=== PATIENT | male | born 2005 | race African-American/Black ===

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

== ENCOUNTER 2024-09-24 17:38 | Inpatient (IN) | payer OTHER ==
[2024-09-24 18:06] VITALS: BMI 26.7
[2024-09-24] MEDS ORDERED: IBUPROFEN 400 MG TABLET (FP) PO PRN (18:20)
[2024-09-24] MEDS ORDERED: LOPERAMIDE HCL 2 MG CAPSULE PO PRN (18:20)
[2024-09-24] MEDS ORDERED: NALOXONE (NARCAN) HCL 4 MG/0.1 ML SPRAY NS PRN (18:20)
[2024-09-24] MEDS ORDERED: DICYCLOMINE HCL 10 MG CAPSULE PO PRN (18:20)
[2024-09-24] MEDS ORDERED: BENZONATATE 200 MG CAPSULE PO PRN (18:20)
[2024-09-24] MEDS ORDERED: MAGNESIUM HYDROX 2400MG/30ML ORAL SUSPENSION 30 ML CUP PO PRN (18:20)
[2024-09-24] MEDS ORDERED: MAG HYDROX/AL HYDROX/SIMETH 30 ML UNIT-DOSE CUP PO PRN (18:20)
[2024-09-24] MEDS ORDERED: NICOTINE POLACRILEX 2 MG GUM BUC PRN (18:20)
[2024-09-24] MEDS ORDERED: BENZOCAINE/MENTHOL (CHLORASEPTIC ) LOZENGE MM PRN (18:20)
[2024-09-24] MEDS ORDERED: POLYETHYLENE GLYCOL (HEALTHYLAX) 3350 17 GM PACKET PO PRN (18:20)
[2024-09-24] MEDS ORDERED: IBUPROFEN 600 MG TABLET (FP) PO PRN (18:20)
[2024-09-24] MEDS ORDERED: ACETAMINOPHEN 325 MG TABLET (FP) PO PRN (18:20)
[2024-09-24] MEDS ORDERED: NICOTINE POLACRILEX 2 MG LOZENGE BC PRN (18:20)
[2024-09-24] MEDS ORDERED: BISMUTH SUBSALICYLATE 524 MG/30 ML PO PRN (18:20)
[2024-09-24] MEDS ORDERED: ONDANSETRON *ODT* 4 MG TABLET SL PRN (18:20)
[2024-09-24] MEDS ORDERED: guaiFENesin 600 MG TABLET.ER (FP) PO PRN (18:20)
[2024-09-24] MEDS ORDERED: ALBUTEROL SO4 HFA INHALER IH PRN (21:08)
[2024-09-24] MEDS: THIAMINE 100 MG TABLET PO SCH (22:14)
[2024-09-24] MEDS: BUDESONIDE/FORMETEROL FUMARATE 80/4.5 mcg INHALER IH SCH (22:14)
[2024-09-24] MEDS: MELATONIN 5 MG TABLETS PO SCH (22:19)
[2024-09-25] MEDS: PRENATAL VITAMINS W/ FOLIC ACID TABLET (FP) PO SCH (09:39)
[2024-09-25] MEDS: FOLIC ACID 1 MG TABLET (FP) PO SCH (09:40)
[2024-09-25] MEDS: METHOCARBAMOL 500 MG TABLET PO PRN (21:43)
[2024-09-25] MEDS: hydrOXYzine PAMOATE 25 MG CAPSULE (FP) PO PRN (21:43)
[2024-09-26 08:53] VITALS: BP 141/74; PULSE 100; RESP 15; TEMP 97.3
== END 2024-09-26 10:04 | disposition home or self-care (01) | DRG 775 ==
LOC: YASAS 17:38 → Y6N 18:37
PROVIDERS: ADMIT Neuromusculoskeletal Medicine & OMM; ATTEND Allergy & Immunology
PROC: HZ2ZZZZ Detoxification Services for Substance Abuse Treatment (ICD-10-PCS; principal; 2024-09-24)
DX: F10.230 Alcohol dependence with withdrawal, uncomplicated (principal); F12.20 Cannabis dependence, uncomplicated; F17.290 Nicotine dependence, other tobacco product, uncomplicated; F10.282 Alcohol dependence with alcohol-induced sleep disorder; G47.00 Insomnia, unspecified; J45.909 Unspecified asthma, uncomplicated; Z86.79 Personal history of other diseases of the circulatory system
CPT/HCPCS: 80305; 80307; 93005; 93010

== ENCOUNTER 2024-10-18 20:25 | Observation (INO) | payer OTHER ==
[2024-10-18 20:35] VITALS: BMI 26.1
[2024-10-18] MEDS ORDERED: FAMOTIDINE 20 MG/50 ML IVPB 20 MG/50 ML MG IVPB ONE (22:26)
[2024-10-18] MEDS ORDERED: THIAMINE HCL 200 MG/2 ML VIAL ONE (22:26)
[2024-10-18] MEDS ORDERED: ONDANSETRON 4 MG/2 ML VIAL ONE (22:26)
[2024-10-18 23:00] LABS: BG HCT 49.0 % (35.4-49); VENOUS BASE EXCESS -10.1 mmol/L (-2-2); VENOUS O2 SATURATION 84.8 % (70-80); VENOUS PCO2 33.9 mmHg (38-52); VENOUS PH 7.277 (7.310-7.410)
[2024-10-18] MEDS: THIAMINE HCL 200 MG/2 ML VIAL IVPB ONE (23:01)
[2024-10-18] MEDS: FAMOTIDINE 20 MG/50 ML IVPB 20 MG/50 ML MG IVPB ONE (23:01)
[2024-10-18] MEDS: LACTATED RINGERS SOLUTION 1000 ML INFUS.BAG IV ONE (23:01)
[2024-10-18] MEDS: ONDANSETRON 4 MG/2 ML VIAL IVPUSH ONE (23:01)
[2024-10-18 23:07] LABS: ABSOLUTE IMMATURE GRANULOCYTES 0.03 x10^3/uL (0.0-0.031); BASOPHILS # 0.06 x10^3/uL (0.01-0.08); EOSINOPHIL % 0.1 % (0.8-7.0); EOSINOPHILS # 0.01 x10^3/uL (0.04-0.54); MCHC 32.6 g/dl (32.3-36.5); MEAN CELL VOLUME 91.4 fl (79.0-92.2); MEAN PLT VOLUME 9.4 fl (9.4-12.4); MONOCYTE # 0.16 x10^3/uL (0.30-0.82); MONOCYTE % 1.6 % (5.3-12.2); RDW 13.2 % (12.0-15.6)
[2024-10-18 23:11] LABS: URINE APPEARANCE CLEAR; URINE BILIRUBIN NEGATIVE (NEGATIVE); URINE COLOR YELLOW; URINE GLUCOSE (UA) NEGATIVE (NEGATIVE); URINE KETONE 3+ (NEGATIVE); URINE LEUK ESTERASE NEGATIVE (NEGATIVE); URINE NITRITE NEGATIVE (NEGATIVE); URINE PROTEIN TRACE (NEGATIVE); URINE UROBILINOGEN 1.0 mg/dL (0.2-1.0)
[2024-10-18 23:15] LABS: INR 1.04 (0.83-1.09); PROTHROMBIN TIME (PATIENT) 11.3 SEC (9.7-13.0)
[2024-10-18 23:18] LABS: ACTIVATED PTT 25.4 SECONDS (25.2-36.5)
[2024-10-18 23:24] LABS: CO2 19.0 mmol/L (21-32); GLUCOSE,RANDOM 118.0 mg/dL (74-106)
[2024-10-18 23:26] LABS: CREATININE 1.1 mg/dL (0.55-1.3); SGOT/AST 80.0 U/L (15-37); SGPT/ALT 77.0 U/L (13-61)
[2024-10-18 23:28] LABS: TOT PROT 8.2 g/dl (6.4-8.2)
[2024-10-18 23:29] LABS: ALK PHOS 91.0 U/L (45-117)
[2024-10-19 00:16] LABS: HIV INTERPRETATION NEGATIVE (NEGATIVE)
[2024-10-19 00:17] LABS: HCV DIAGNOSTIC IN-HOUSE W/RFLX NON-REACTIVE (NONREACTIVE)
[2024-10-19] MEDS: DEXTROSE 5%-LACTATED RINGERS 1,000 ML IV SCH ×2 (00:45→03:37)
[2024-10-19] MEDS ORDERED: ONDANSETRON 4 MG/2 ML VIAL IVPUSH PRN (02:42)
[2024-10-19] MEDS: ENOXAPARIN NA (PORCINE) 40 MG/0.4 ML DISP.SYRIN SQ SCH (09:25)
[2024-10-19] MEDS: FOLIC ACID 1 MG TABLET (FP) PO SCH (09:25)
[2024-10-19 09:59] LABS: MCHC 33.1 g/dl (32.3-36.5); MEAN CELL VOLUME 89.9 fl (79.0-92.2); MEAN PLT VOLUME 9.7 fl (9.4-12.4); RDW 13.1 % (12.0-15.6)
[2024-10-19 10:45] LABS: CO2 27.0 mmol/L (21-32); GLUCOSE,RANDOM 112.0 mg/dL (74-106)
[2024-10-19 10:48] LABS: CREATININE 0.9 mg/dL (0.55-1.3); SGOT/AST 43.0 U/L (15-37); SGPT/ALT 58.0 U/L (13-61)
[2024-10-19 10:50] LABS: TOT PROT 6.5 g/dl (6.4-8.2)
[2024-10-19 10:51] LABS: ALK PHOS 71.0 U/L (45-117)
[2024-10-19 14:22] VITALS: RESP 18
[2024-10-19 16:56] LABS: COCAINE, UR NEGATIVE (NEGATIVE); METHADONE, UR NEGATIVE (NEGATIVE); URINE BARBITURATES NEGATIVE (NEGATIVE)
[2024-10-19 17:10] LABS: OPIATES, URI NEGATIVE (NEGATIVE); PHENCYCLIDINE,URINE NEGATIVE (NEGATIVE); URINE AMPHETAMINES NEGATIVE (NEGATIVE); URINE BENZODIAZEPINES POSITIVE (NEGATIVE)
[2024-10-20] MEDS ORDERED: IPRATROPIUM BR 0.02% 0.5 MG/2.5 ML VIAL.NEB. NEB PRN (10:51)
[2024-10-20 10:57] LABS: ABSOLUTE IMMATURE GRANULOCYTES 0.01 x10^3/uL (0.0-0.031); BASOPHILS # 0.03 x10^3/uL (0.01-0.08); EOSINOPHIL % 5.8 % (0.8-7.0); EOSINOPHILS # 0.21 x10^3/uL (0.04-0.54); MCHC 32.9 g/dl (32.3-36.5); MEAN CELL VOLUME 90.7 fl (79.0-92.2); MEAN PLT VOLUME 9.8 fl (9.4-12.4); MONOCYTE # 0.40 x10^3/uL (0.30-0.82); MONOCYTE % 11.0 % (5.3-12.2); RDW 13.0 % (12.0-15.6)
[2024-10-20 11:43] LABS: CO2 27.0 mmol/L (21-32); GLUCOSE,RANDOM 114.0 mg/dL (74-106)
[2024-10-20 11:46] LABS: CREATININE 0.9 mg/dL (0.55-1.3); SGOT/AST 34.0 U/L (15-37); SGPT/ALT 54.0 U/L (13-61)
[2024-10-20 11:48] LABS: TOT PROT 6.3 g/dl (6.4-8.2)
[2024-10-20 11:49] LABS: ALK PHOS 67.0 U/L (45-117)
[2024-10-21 09:28] LABS: ABSOLUTE IMMATURE GRANULOCYTES 0.01 x10^3/uL (0.0-0.031); BASOPHILS # 0.03 x10^3/uL (0.01-0.08); EOSINOPHIL % 6.0 % (0.8-7.0); EOSINOPHILS # 0.27 x10^3/uL (0.04-0.54); MCHC 32.6 g/dl (32.3-36.5); MEAN CELL VOLUME 90.1 fl (79.0-92.2); MEAN PLT VOLUME 9.8 fl (9.4-12.4); MONOCYTE # 0.37 x10^3/uL (0.30-0.82); MONOCYTE % 8.2 % (5.3-12.2); RDW 12.5 % (12.0-15.6)
[2024-10-21 10:13] LABS: CO2 27.0 mmol/L (21-32)
[2024-10-21 10:14] LABS: GLUCOSE,RANDOM 81.0 mg/dL (74-106)
[2024-10-21 10:17] LABS: CREATININE 0.7 mg/dL (0.55-1.3); SGOT/AST 34.0 U/L (15-37); SGPT/ALT 56.0 U/L (13-61)
[2024-10-21 10:18] LABS: TOT PROT 7.0 g/dl (6.4-8.2)
[2024-10-21 10:19] LABS: ALK PHOS 72.0 U/L (45-117)
[2024-10-21 10:33] VITALS: BP 136/78; PULSE 70; TEMP 97.7
== END 2024-10-21 11:30 | disposition home or self-care (01) ==
LOC: JER 20:25 → JERBED 10-19 00:26 → J5S 10-19 05:13
PROVIDERS: ADMIT Hospitalist; ATTEND Nurse Practitioner Family
DX: E87.29 Other acidosis (principal); F10.139 Alcohol abuse with withdrawal, unspecified; Y90.7 Blood alcohol level of 200-239 mg/100 ml; F17.290 Nicotine dependence, other tobacco product, uncomplicated; J45.909 Unspecified asthma, uncomplicated; F12.20 Cannabis dependence, uncomplicated
CPT/HCPCS: 36415; 71046-TC-FY; 80053; 80307; 81003; 82010; 82803; 82962; 83690; 83735; 84100; 84484; 85025; 85027; 85610; 85730; 86803; 86850; 86900; 86901; 87086; 87389; 87637-QW; 93005; 93010; 96360; 96361; 96372; 96374; 96376; 99285-25; G0378